=== PATIENT | female | born 1945 ===

== ENCOUNTER 2016-11-27 10:11 | Inpatient (IN) | payer MEDICARE ==
[2016-11-27 10:27] VITALS: BMI 16.6
[2016-11-27 11:13] LABS: BLOOD UREA NITROGEN 12 mg/dl (7-17); CALCIUM 9.8 mg/dL (8.4-10.2); CARBON DIOXIDE 24 mmol/L (22-30); CHLORIDE 105 mmol/L (98-107); GFR AFRICAN-AMERICAN > 60; GLUCOSE,RANDOM 84 mg/dL (65-105); POTASSIUM 4.1 MMOL/L (3.6-5.0); SODIUM 141 mmol/l (132-148)
[2016-11-27] MEDS ORDERED: Lactated Ringer's 1,000 ML IV ONE (11:15)
[2016-11-27] MEDS ORDERED: EPINEPHrine 1 mg/ml (1:1000) Inj ONE (13:32)
[2016-11-27] MEDS ORDERED: Bupivacaine 0.5% Inj(30mL) ONE (13:32)
[2016-11-27] MEDS ORDERED: Thrombin Topical 5,000 IU Spray Kit ONE (13:33)
[2016-11-27] MEDS ORDERED: Absorbable Gelatin Sponge Size 100 ONE (13:33)
[2016-11-27] MEDS ORDERED: Morphine 1 mg/ml preservative-free Inj(Duramorph) ONE (13:33)
[2016-11-27] MEDS ORDERED: Propofol 10 mg/ml Inj (20 ML) ONE (13:40)
[2016-11-27] MEDS ORDERED: Midazolam 2 MG/2 ML VIAL ONE (13:41)
[2016-11-27] MEDS ORDERED: Rocuronium 10 mg/ml (5 ml) ONE (13:41)
[2016-11-27] MEDS ORDERED: Sevoflurane - Inhalation Anesthetic Liq (250 ml) ONE (15:11)
--- NOTE | 2016-11-27 15:43 | RAD ---
PROCEDURE: CHEST RADIOGRAPH, 1 VIEW HISTORY: pre-op COMPARISON: None available. FINDINGS: LUNGS: The lungs are hyperinflated and there is peribronchial thickening with chronic changes in both lungs. PLEURA: No pneumothorax or pleural fluid seen. CARDIOVASCULAR: Normal. OSSEOUS STRUCTURES: No significant abnormalities. VISUALIZED UPPER ABDOMEN: Normal. OTHER FINDINGS: None. IMPRESSION: No active pulmonary disease. COPD.
[2016-11-27] MEDS ORDERED: Sodium Chloride 0.9% Inj (10mL) IV ONE (15:45)
[2016-11-27] MEDS ORDERED: Neostigmine Methylsulfate 3mg/3ml Syringe IV ONE (16:00)
[2016-11-27] MEDS ORDERED: Lactated Ringer's 500 ML IV ONE (16:20)
[2016-11-27] MEDS: HYDROmorphone 0.5 mg/0.5 ml ISec IVP PRN ×3 (16:45→17:00)
[2016-11-27] MEDS ORDERED: HYDROmorphone 0.5 mg/0.5 ml ISec ONE ×2 (16:47→16:53)
--- NOTE | 2016-11-27 16:53 | PCM.SURG1 ---
Surgeon's Initial Post Op Note - Surgeon's Notes Surgeon: Jhon Tirado MD Social Media Content Manager: Molly Chris PA-C Type of Anesthesia: General Endo Pre-Operative Diagnosis: Right knee severe osteoarthritis Operative Findings: see op report Post-Operative Diagnosis: same as pre-op dx Operation Performed: R TKR Specimen/Specimens Removed: Right knee bone and soft tissue Estimated Blood Loss: EBL {In ML}: 200 Date of Surgery/Procedure: 11/27/16 Time of Surgery/Procedure: 14:00
[2016-11-27] MEDS ORDERED: Labetalol 5 mg/ml Inj 20ML IVP PRN (17:01)
[2016-11-27] MEDS ORDERED: DiphenhydrAMINE 50 mg/ml Inj IVP PRN (17:01)
[2016-11-27] MEDS ORDERED: Labetalol 5 mg/ml Inj 20ML IVP STA (17:11)
[2016-11-27] MEDS ORDERED: EnalaprilAT 1.25 mg/ml Inj IVP ONE (17:56)
--- NOTE | 2016-11-27 18:52 | OP ---
PROCEDURE DATE: 11/27/2016 PROCEDURE DATE: 11/27/2016 ATTENDING SURGEON: Jhon Tirado MD [employer] ETCHER: JANIE Vang PREOPERATIVE DIAGNOSIS: Right knee osteoarthritis. POSTOPERATIVE DIAGNOSIS: Right knee osteoarthritis. PROCEDURE: Right total knee replacement. IMPLANTS SIZE: Size 2 tibial base plate, size 1 femur, 13 mm polyethylene insert, 29 mm patella. ANESTHESIA TYPE: General. ESTIMATED BLOOD LOSS: 50 mL. COMPLICATIONS: None. HISTORY: Patient with prolonged history of right knee pain progressively getting worse despite exten sive conservative management, which included activity modification, injections, anti-inflammatory mod ification and physical therapy. X-rays had revealed advanced arthritis. Patient was indicated for to luz elena knee replacement due to continued pain and limited mobility. I had a detailed discussion with the patient in the office explaining the nature of the surgery, alternatives of surgery, risks and benef its, rehabilitation protocol and surgical markings. Risks of surgery include but not limited to cont inued pain, lack of motion, infection, vascular injury, DVT/PE, nerve injury including peroneal nerve dysfunction, reflex sympathetic dystrophy, compartment syndrome, unforeseen medical and/or anesthesi a complications, limb loss, and even . The patient expressed an understanding of the risks and possible benefits of the procedure, and is also aware of the alternatives to surgery. PROCEDURE: On the day of the surgery, the patient was admitted to pre-operative holding area. A lat erality sheet was completed confirming the correct operative site. The correct surgical knee was mar ked in the holding area and informed consent was signed from the patient. Once again, I reviewed the risks and benefits of the surgery with the patient in detail. These risks include but are not limit ed to continued pain, lack of motion, infection, vascular injury, DVT/PE, nerve injury including dong eliel nerve dysfunction, reflex sympathetic dystrophy, symptomatic hardware, need for further procedur e and surgeries, instability, iatrogenic fractures, compartment syndrome, unforeseen medical and/or a nesthesia complications, limb loss, and even . The patient expressed an understanding of the ri sks and possible benefits of the procedure, also aware of the alternatives to surgery and signed the informed consent. The patient was transported to the operating room and placed in the supine position, general anesthes ia was obtained Exam Under Anesthesia: Revealed range of motion is from -3 to 120, slight varus that was . Sta ble to varus and valgus stress. A padded tourniquet was applied to patient's operative thigh and appropriate prophylactic antibiotics were given. The operative leg was draped and prepped in standard sterile manner. Timeout was compl eted, confirming patient's right knee to be the correct operative site. Using an Esmarch, the extrem ity was exsanguinated and tourniquet was inflated to 350 mmHg. The surgical incision markings were m ruthie using patella border, tibial tubercle, patella and quadriceps tendon. Using a 10 blade, a midlin e incision was made. Skin dissection was taken until the prepatellar fascia was identified and the c orners of the patellar tendon were marked for proper closure at the end of the procedure. Using a fr esh 10 blade, a medial parapatellar arthrotomy was performed. The knee was exposed in the standard m ludmila. The deep MCL was elevated for exposure, medial and lateral menisci were removed, ACL and PCL were also transected. The tibia was subluxed anteriorly. Planned tibial cut was made with power saw, using extra-medullary guide, perpendicular to mechanical axis of the tibia. After the cut was made, the alignment was also checked and was found to be appropr iate. Next, the knee was placed into 90 degrees of flexion. A drill hole was made within the femora l notch anterior to PCL insertion for placement of intramedullary femoral marce. Intramedullary femora l marce was inserted within the femoral canal and planned distal femoral cut was made. After the cut, k nee was brought into full extension. Spacer blocks were used to check the extension balancing both in full extension and 30 degrees of flexion. It was found that a 13 mm trial spacer block allowed full extension with symmetric varus and valgus balancing. Next we proceed with patella resurfacing. [place] patella width was found to 22 mm. Using the free -hand technique the arthritic patella surface was resected. Patella was sized using the guide and it was noted that 29 mm Patella dome button would be appropriate for the patient. Next the size of femoral component was determined using the posterior referencing guide. It was noted that a size 1 femur would be appropriate for this patient without causing any significant notching. A 4 x 1 cutting block was placed and flexion gap balancing was checked. The flexion gap was found to be symmetric to the extension gap. Anterior and posterior condyle, anterior and posterior chamfer cu ts were made. Next, appropriate size box cut for femoral component was prepared using the guide. The femoral trial component was impacted onto the distal femur. Appropriate size tibial trial compone nt was also placed on the cut surface of the tibia. Using the drill and punch, keel for tibial implan t was prepared. Trial tibial tray was secured onto the tibia using pins. Different size trial polyeth ylene inserts were secured on to the trial tibial tray to critically assess the following parameters: Full range of motion, extension and flexion gap balancing, mid-flexion stability, anterior and poste rior drawer, and patellar tracking. All parameter were found to be satisfactory with a 13 mm polyethy rome insert. All the trial components were removed. Implants were opened on the back table. Cement was mixed and w e proceed with cement fixation of the implants. Tibial tray, femoral component and patellar dome butt on were secured with cement. Polyethylene insert was secured onto the tibial tray using locking mecha nism. The knee was reduced and brought into full extension. Cement was allowed to harden until final component fixation. Knee was taken through the final range of motion for stability testing, and foun d to be satisfactory. A 60 mL of custom cocktail mixture was injected into posterior capsule, MCL, LCL, quadriceps tendon, and patellar tendon. Wound was copiously irrigated with sterile antibiotic solution using pulse lavag e. Arthrotomy was closed using heavy suture and wound was closed in standard manner. Patient was extu bated, transferred to stretcher and taken to the recovery room. Post-operative instructions were prov ided, physical therapy consult was requested along with DVT prophylaxis and appropriate pain medicati ons. During this procedure, I was assisted by JANIE Vang, who assisted in positioning the patient on the operating room table as well as transferring the patient from the operating room table to the recovery room stretcher. In addition, JANIE Vang, assisted me during the actual operative procedure by positioning, protecting critical neurovascular structures, exposure of the joint, and p anna positioning of the implants. The presence of JANIE Vang, as my operative investigative assistant was medically necessary to ensure the utmost safety of the patient in the pre, intra-, and post-operativ e periods. Jhon Tirado MD cc: [id number] TT: 11/27/2016 18:51:38 dn
[2016-11-27] MEDS ORDERED: ceFAZolin 1 GM in Sodium Chloride 0.9% 100 ML IVPB ONE (22:00)
[2016-11-27] MEDS: Lactated Ringer's 1,000 ML IV SCH (22:10)
[2016-11-27] MEDS: oxyCODONE 10 mg ER Tab (oxyCONTIN) PO SCH (22:12)
[2016-11-28] MEDS: Oxycodone/Acetaminophen 5/325 mg Tab PO PRN ×2 (01:21→05:14)
[2016-11-28] MEDS ORDERED: ceFAZolin 1 GM in Sodium Chloride 0.9% 100 ML IVPB ONE (06:00)
[2016-11-28] MEDS: Lactated Ringer's 1,000 ML IV SCH (06:23)
[2016-11-28 07:19] LABS: BASO % 0.3 % (0.0-2.0); EOS % 0.4 % (0.0-4.0); HEMATOCRIT 25.1 % (34.0-47.0); MEAN CELL VOLUME 91.9 fl (81.0-99.0); MEAN CORPUSCULAR HEMOGLOBIN 31.8 pg (27.0-31.0); MEAN CORPUSCULAR HGB CONC 34.5 g/dL (33.0-37.0); MEAN PLATELET VOLUME 9.2 fl (7.2-11.7); MONO # 0.5 K/uL (0.0-0.8); NEUT # 4.4 K/uL (1.8-7.0); NEUT % 73.3 % (50.0-75.0); NRBC % 0.1 % (0.0-0.0); RED CELL DISTRIBUTION WIDTH 13.5 % (11.5-14.5)
[2016-11-28 07:27] LABS: BLOOD UREA NITROGEN 10 mg/dl (7-17); CALCIUM 7.9 mg/dL (8.4-10.2); CARBON DIOXIDE 23 mmol/L (22-30); CHLORIDE 103 mmol/L (98-107); GFR AFRICAN-AMERICAN > 60; GLUCOSE,RANDOM 82 mg/dL (65-105); POTASSIUM 3.8 MMOL/L (3.6-5.0); SODIUM 135 mmol/l (132-148)
--- NOTE | 2016-11-28 08:43 | CP.PCM.PN ---
Subjective - Date & Time of Evaluation Date of Evaluation: 11/28/16 Time of Evaluation: 08:30 - Subjective Subjective: S/P RTKR POD#1 Pt seen and examined at bedside, comfortable in bed, in NAD Pt c/o ,ild right knee pain, well controlled with pain meds Pt denies any SOB, chest pain, N/V/D, numbness/tingling RLE Objective - Vital Signs/Intake and Output Vital Signs (last 24 hours): Temp Pulse Resp BP Pulse Ox 100.2 F H 85 20 153/63 H 98 11/28/16 08:06 11/28/16 08:06 11/28/16 08:06 11/28/16 08:06 11/28/16 08:06 - Medications Medications: Current Medications Acetaminophen (Tylenol 325mg Tab) 325 mg PO Q4 PRN PRN Reason: pain 1-3 Aspirin (Aspirin) 325 mg PO BID [facility] Celecoxib (Celebrex) 200 mg PO Q12 [facility] Last Admin: 11/27/16 22:00 Dose: 200 mg Docusate Sodium (Colace) 100 mg PO BID [facility] Famotidine (Pepcid) 20 mg PO BID [facility] Lactated Ringer's (Lactated Ringer's) 1,000 mls @ 75 mls/hr IV .[id number] [facility] Last Admin: 11/28/16 06:23 Dose: Not Given Ketorolac Tromethamine (Toradol) 15 mg IVP Q8@0000,0800,1600 [facility] Magnesium Hydroxide (Milk Of Magnesia) 15 ml PO DAILY [facility] Ondansetron HCl (Zofran Odt) 4 mg PO Q8H PRN PRN Reason: Nausea/Vomiting Oxycodone HCl (Oxycontin Extended Release Tab) 10 mg PO Q12 [facility] Stop: 12/14/16 21:01 Last Admin: 11/27/16 22:12 Dose: 10 mg Oxycodone/Acetaminophen (Percocet 5/325 Mg Tab) 1 tab PO Q4 PRN PRN Reason: pain 4-6 Stop: 11/30/16 17:21 Last Admin: 11/28/16 05:14 Dose: 1 tab - Labs Labs: 11/28/16 06:10 11/28/16 06:10 - Constitutional Appears: Well, No Acute Distress - Respiratory Exam Respiratory Exam: Clear to Ausculation Bilateral, NORMAL BREATHING PATTERN - Cardiovascular Exam Cardiovascular Exam: REGULAR RHYTHM, RRR - Extremities Exam Additional comments: RLE: Knee dressing C/D/I Calves soft and nontender b/l N/V intact Normal ROM at ankle No foot drop Distal pulses wnl Assessment and Plan - Assessment and Plan (Free Text) Assessment: S/P RTKR POD#1 Plan: S/P RTKR POD#1 Abx to be stopped within 24hrs post op Pain Control PT/OT- WBAT RLE CPM DVT ppx- aspirin 325mg bid Apply SCD to b/l LE Incentive Spirometer F/U labs Discussed with Dr. Tirado
--- NOTE | 2016-11-28 10:06 | RAD ---
PROCEDURE: Right knee radiograms HISTORY: post-op COMPARISON: None available. TECHNIQUE: Standard protocol for this study/examination. FINDINGS: Satisfactory postoperative status following right TKA. Components of the right knee replacement are in satisfactory position and alignment. IMPRESSION: Satisfactory postoperative status.
--- NOTE | 2016-11-28 12:00 | CP.PCM.HP ---
History of Present Illness - History of Present Illness History of Present Illness: 71yo F with PMHx OA admitted s/p right TKR. tolerated procedure well with no complication. PMHx: as above SHX: R TKR Social: denies x3 Allergies: NKDA FHx: NC d/w attending Present on Admission - Present on Admission Any Indicators Present on Admission: No Review of Systems - Review of Systems All systems: reviewed and no additional remarkable complaints except Review of Systems: right knee pain Past Patient History - Past Medical History & Family History Past Medical History?: No - Past Social History Smoking Status: Never Smoked - CARDIAC Hx Cardiac Disorders: No - PULMONARY Hx Respiratory Disorders: No - NEUROLOGICAL Hx Neurological Disorder: No - HEENT Hx HEENT Problems: No - ENDOCRINE/METABOLIC Hx Endocrine Disorders: No - HEMATOLOGICAL/ONCOLOGICAL Hx Blood Disorders: No - INTEGUMENTARY Hx Dermatological Problems: No - MUSCULOSKELETAL/RHEUMATOLOGICAL Hx Musculoskeletal Disorders: Yes Hx Osteoarthritis: Yes - GASTROINTESTINAL Hx Gastrointestinal Disorders: No - GENITOURINARY/GYNECOLOGICAL Hx Genitourinary Disorders: No - PSYCHIATRIC Hx Psychophysiologic Disorder: No - SURGICAL HISTORY Hx Surgeries: Yes Hx Section: Yes (x1) Other/Comment: back surgery - ANESTHESIA Hx Anesthesia: Yes Hx Anesthesia Reactions: Yes (vomiting) Hx Malignant Hyperthermia: No Has any member of the family had a problem w/ anesthesia?: No Meds Allergies/Adverse Reactions: Allergies Allergy/AdvReac Type Severity Reaction Status Date / Time No Known Allergies Allergy Verified 11/27/16 10:27 Physical Exam - Head Exam Head Exam: ATRAUMATIC, NORMAL INSPECTION - Eye Exam Eye Exam: Normal appearance - ENT Exam ENT Exam: Mucous Membranes Moist - Neck Exam Neck exam: Positive for: Normal Inspection - Respiratory Exam Respiratory Exam: Clear to Auscultation Bilateral - Cardiovascular Exam Cardiovascular Exam: REGULAR RHYTHM - GI/Abdominal Exam GI & Abdominal Exam: Soft - Extremities Exam Extremities exam: Negative for: pedal edema Additional comments: right knee dressing CDI - Neurological Exam Neurological exam: Alert, Oriented x3 - Skin Skin Exam: Dry, Warm Results - Vital Signs Recent Vital Signs: Last Vital Signs Temp 100.2 F H 11/28/16 08:06 Pulse 85 11/28/16 08:06 Resp 20 11/28/16 08:06 BP 153/63 H 11/28/16 08:06 Pulse Ox 98 11/28/16 08:06 - Labs Result Diagrams: 11/28/16 06:10 11/28/16 06:10 Labs: Laboratory Results - last 24 hr 11/28/16 11/28/16 06:10 06:10 WBC 6.0 RBC 2.73 L Hgb 8.7 L Hct 25.1 L MCV 91.9 MCH 31.8 H MCHC 34.5 RDW 13.5 Plt Count 128 L MPV 9.2 Neut % (Auto) 73.3 Lymph % (Auto) 17.0 L [place] % (Auto) 9.0 Eos % (Auto) 0.4 Baso % (Auto) 0.3 Neut # 4.4 Lymph # 1.0 [place] # 0.5 Eos # 0.0 Baso # 0.0 Sodium 135 Potassium 3.8 Chloride 103 Carbon Dioxide 23 Anion Gap 12 BUN 10 Creatinine 0.7 Est GFR ( Amer) > 60 Est GFR (Non-Af Amer) > 60 Random Glucose 82 Calcium 7.9 L Assessment & Plan (1) S/P TKR (total knee replacement) Status: Acute - Assessment and Plan (Free Text) Assessment: -ortho on board, appreciate input -WBAT -PT/OT -incentive spiromety -pain control Decision To Admit - Pt Status Changed To: Hospital Disposition Of: Inpatient - Admit Certification Admit to Inpatient:: After my assessment, the patient will require hospitalization for at least two midnights. This is because of the severity of symptoms shown, intensity of services needed, and/or the medical risk in this patient being treated as an outpatient. - . Bed Request Type: Med/Surg Admitting Physician: Alvarado Vernon
[2016-11-28] MEDS: oxyCODONE 10 mg ER Tab (oxyCONTIN) PO SCH ×2 (14:35→23:14)
[2016-11-28] MEDS: Magnesium Hydroxide Susp 30 ml UD PO SCH (14:46)
[2016-11-29 07:55] LABS: BASO % 0.2 % (0.0-2.0); EOS # 0.1 K/uL (0.0-0.7); EOS % 1.9 % (0.0-4.0); HEMATOCRIT 25.1 % (34.0-47.0); LYMPH # 0.8 K/uL (1.0-4.3); MEAN CELL VOLUME 92.2 fl (81.0-99.0); MEAN CORPUSCULAR HEMOGLOBIN 31.5 pg (27.0-31.0); MEAN CORPUSCULAR HGB CONC 34.1 g/dL (33.0-37.0); MEAN PLATELET VOLUME 9.7 fl (7.2-11.7); MONO # 0.6 K/uL (0.0-0.8); MONO % 9.1 % (0.0-10.0); NEUT # 5.3 K/uL (1.8-7.0); NEUT % 76.8 % (50.0-75.0); NRBC % 0.1 % (0.0-0.0); RED CELL DISTRIBUTION WIDTH 13.3 % (11.5-14.5); WHITE BLOOD COUNT 6.9 K/uL (4.8-10.8)
[2016-11-29 08:15] LABS: BLOOD UREA NITROGEN 10 mg/dl (7-17); CALCIUM 8.8 mg/dL (8.4-10.2); CARBON DIOXIDE 26 mmol/L (22-30); CHLORIDE 104 mmol/L (98-107); GFR AFRICAN-AMERICAN > 60; GLUCOSE,RANDOM 85 mg/dL (65-105); POTASSIUM 3.8 MMOL/L (3.6-5.0); SODIUM 138 mmol/l (132-148)
[2016-11-29] MEDS: Magnesium Hydroxide Susp 30 ml UD PO SCH (09:30)
[2016-11-29] MEDS: oxyCODONE 10 mg ER Tab (oxyCONTIN) PO SCH ×2 (09:43→21:44)
--- NOTE | 2016-11-29 11:49 | CP.PCM.PN ---
Subjective - Date & Time of Evaluation Date of Evaluation: 11/29/16 Time of Evaluation: 11:15 - Subjective Subjective: S/P RTKR POD#2 Pt seen and examined at bedside, with present at bedside, comfortable in bed Pt c/o mild right knee pain Pt c/o constipation, has not had BM Pt denies SOB, chest pain, N/V/D, numbness/tingling RLE Objective - Vital Signs/Intake and Output Vital Signs (last 24 hours): Temp Pulse Resp BP Pulse Ox 98.3 F 84 18 157/71 H 98 11/29/16 07:36 11/29/16 09:26 11/29/16 07:36 11/29/16 09:26 11/29/16 07:36 - Medications Medications: Current Medications Acetaminophen (Tylenol 325mg Tab) 325 mg PO Q4 PRN PRN Reason: pain 1-3 Amlodipine Besylate (Norvasc) 5 mg PO DAILY [facility] Last Admin: 11/29/16 09:26 Dose: 5 mg Aspirin (Aspirin) 325 mg PO BID [facility] Last Admin: 11/29/16 09:30 Dose: 325 mg Celecoxib (Celebrex) 200 mg PO Q12 [facility] Last Admin: 11/29/16 09:26 Dose: 200 mg Docusate Sodium (Colace) 100 mg PO BID [facility] Last Admin: 11/29/16 09:26 Dose: 100 mg Famotidine (Pepcid) 20 mg PO BID [facility] Last Admin: 11/29/16 09:27 Dose: 20 mg Ferrous Sulfate (Feosol) 325 mg PO BID [facility] Last Admin: 11/29/16 09:26 Dose: 325 mg Lactated Ringer's (Lactated Ringer's) 1,000 mls @ 75 mls/hr IV .[id number] [facility] Last Admin: 11/28/16 06:23 Dose: Not Given Ketorolac Tromethamine (Toradol) 15 mg IVP Q8@0000,0800,1600 [facility] Last Admin: 11/29/16 09:25 Dose: 15 mg Magnesium Hydroxide (Milk Of Magnesia) 15 ml PO DAILY [facility] Last Admin: 11/29/16 09:30 Dose: 15 ml Ondansetron HCl (Zofran Inj) 4 mg IVP Q6 PRN PRN Reason: Nausea/Vomiting Last Admin: 11/28/16 17:25 Dose: 4 mg Oxycodone HCl (Oxycontin Extended Release Tab) 10 mg PO Q12 [facility] Stop: 12/14/16 21:01 Last Admin: 11/29/16 09:43 Dose: 10 mg Oxycodone/Acetaminophen (Percocet 5/325 Mg Tab) 1 tab PO Q4 PRN PRN Reason: pain 4-6 Stop: 11/30/16 17:21 Last Admin: 11/28/16 05:14 Dose: 1 tab - Labs Labs: 11/29/16 06:35 11/29/16 06:35 - Constitutional Appears: Well, No Acute Distress - Respiratory Exam Respiratory Exam: Clear to Ausculation Bilateral, NORMAL BREATHING PATTERN - Cardiovascular Exam Cardiovascular Exam: REGULAR RHYTHM, RRR - Extremities Exam Additional comments: RLE: Knee dressing C/D/I Right calf tender, soft and compressible; left calf soft and nontender N/V intact distally Normal ROM at ankle No foot drop Distal pulses wnl Assessment and Plan - Assessment and Plan (Free Text) Assessment: 71 yo F s/p RTKR POD#2 Plan: S/P RTKR POD#2 Pain control DVT ppx- continue aspirin 325mg bid SCD b/l LE Incentive Spirometer Lactulose ordered prn for constipation B/L LE venous doppler ordered- r/o RLE DVT Labs reviewed, h/h stable D/C planning pending authorization and US results Discussed with Dr. Tirado
--- NOTE | 2016-11-29 14:31 | US ---
PROCEDURE: Right lower extremity venous duplex Doppler. HISTORY: R/O DVT RLE COMPARISON: None available. TECHNIQUE: Common femoral, superficial femoral, popliteal and posterior tibial veins were evaluated. Flow was assessed with color Doppler, compressibility, assessment of phasic flow and augmentation response. FINDINGS: COMMON FEMORAL VEIN: Unremarkable. SUPERFICIAL FEMORAL VEIN: Unremarkable. POPLITEAL VEIN: There is occlusive noncompressible DVT seen in the popliteal and posterior tibial veins . POSTERIOR TIBIAL VEIN: Occlusive noncompressible DVT within the popliteal and posterior tibial veins. OTHER FINDINGS: None. IMPRESSION: DVT seen within the popliteal and posterior tibial veins. Note these findings were discussed with 6 [facility] Nurse Danita at approximately 2:27 p.m. with written down and read back verification.
[2016-11-29] MEDS ORDERED: Enoxaparin 40 mg Syringe SC SCH ×2 (16:00→16:30)
--- NOTE | 2016-11-29 16:39 | CP.PCM.PN ---
Subjective - Date & Time of Evaluation Date of Evaluation: 11/29/16 Time of Evaluation: 11:00 - Subjective Subjective: Patient seen and examined at bedside. No acute events overnight. S/P Right TKR POD#2 Patient continues to have pain though controlled with pain meds. Swelling present. Wound dressing present. Has been OOB. No fever, chills, chest pain, sob. No BM yet, flatus present. Objective - Vital Signs/Intake and Output Vital Signs (last 24 hours): Temp Pulse Resp BP Pulse Ox 99.6 F 99 H 20 134/55 L 94 L 11/29/16 16:31 11/29/16 16:31 11/29/16 16:31 11/29/16 16:31 11/29/16 16:31 - Medications Medications: Current Medications Acetaminophen (Tylenol 325mg Tab) 325 mg PO Q4 PRN PRN Reason: pain 1-3 Amlodipine Besylate (Norvasc) 5 mg PO DAILY [facility] Last Admin: 11/29/16 09:26 Dose: 5 mg Celecoxib (Celebrex) 200 mg PO Q12 [facility] Last Admin: 11/29/16 09:26 Dose: 200 mg Docusate Sodium (Colace) 100 mg PO BID [facility] Last Admin: 11/29/16 09:26 Dose: 100 mg Enoxaparin Sodium (Lovenox) 40 mg SC DAILY [facility] PRN Reason: Protocol Famotidine (Pepcid) 20 mg PO BID [facility] Last Admin: 11/29/16 09:27 Dose: 20 mg Ferrous Sulfate (Feosol) 325 mg PO BID [facility] Last Admin: 11/29/16 09:26 Dose: 325 mg Lactated Ringer's (Lactated Ringer's) 1,000 mls @ 75 mls/hr IV .[id number] [facility] Last Admin: 11/28/16 06:23 Dose: Not Given Ketorolac Tromethamine (Toradol) 15 mg IVP Q8@0000,0800,1600 [facility] Last Admin: 11/29/16 09:25 Dose: 15 mg Lactulose (Enulose) 20 gm PO DAILY PRN PRN Reason: Constipation Magnesium Hydroxide (Milk Of Magnesia) 15 ml PO DAILY [facility] Last Admin: 11/29/16 09:30 Dose: 15 ml Ondansetron HCl (Zofran Inj) 4 mg IVP Q6 PRN PRN Reason: Nausea/Vomiting Last Admin: 11/28/16 17:25 Dose: 4 mg Oxycodone HCl (Oxycontin Extended Release Tab) 10 mg PO Q12 [facility] Stop: 12/14/16 21:01 Last Admin: 11/29/16 09:43 Dose: 10 mg Oxycodone/Acetaminophen (Percocet 5/325 Mg Tab) 1 tab PO Q4 PRN PRN Reason: pain 4-6 Stop: 11/30/16 17:21 Last Admin: 11/28/16 05:14 Dose: 1 tab - Labs Labs: 11/29/16 06:35 11/29/16 06:35 - Constitutional Appears: Well, Non-toxic, No Acute Distress - Head Exam Head Exam: ATRAUMATIC, NORMAL INSPECTION, NORMOCEPHALIC - Eye Exam Eye Exam: Normal appearance - Respiratory Exam Respiratory Exam: Clear to Ausculation Bilateral, NORMAL BREATHING PATTERN - Cardiovascular Exam Cardiovascular Exam: REGULAR RHYTHM, +S1, +S2. absent: Murmur - GI/Abdominal Exam GI & Abdominal Exam: Soft, Normal Bowel Sounds. absent: Tenderness - Extremities Exam Additional comments: right knee dressing CDI, swelling around knee noted Assessment and Plan (1) S/P TKR (total knee replacement) Assessment & Plan: Right - POD#2 Pain control PRN Lactulose for constipation PT/OT incentive spiromety pain control Dr. Tirado on board U/S of RLE to r/o DVT today Continue to monitor Status: Acute
[2016-11-29] MEDS: Oxycodone/Acetaminophen 5/325 mg Tab PO PRN (17:03)
[2016-11-30 06:50] LABS: HEMATOCRIT 22.6 % (34.0-47.0); MEAN CELL VOLUME 93.4 fl (81.0-99.0); MEAN CORPUSCULAR HEMOGLOBIN 31.5 pg (27.0-31.0); MEAN CORPUSCULAR HGB CONC 33.7 g/dL (33.0-37.0); RED CELL DISTRIBUTION WIDTH 13.5 % (11.5-14.5); WHITE BLOOD COUNT 5.6 K/uL (4.8-10.8)
[2016-11-30 07:29] LABS: BLOOD UREA NITROGEN 11 mg/dl (7-17); CALCIUM 8.6 mg/dL (8.4-10.2); CARBON DIOXIDE 26 mmol/L (22-30); CHLORIDE 101 mmol/L (98-107); GFR AFRICAN-AMERICAN > 60; GLUCOSE,RANDOM 103 mg/dL (65-105); POTASSIUM 4.2 MMOL/L (3.6-5.0); SODIUM 134 mmol/l (132-148)
--- NOTE | 2016-11-30 08:16 | CP.PCM.PN ---
Subjective - Date & Time of Evaluation Date of Evaluation: 11/30/16 Time of Evaluation: 07:45 - Subjective Subjective: S/P RTKR POD#3 Pt seen and examined at bedside, comfortable in bed, in NAD Pt started on lovenox 40mg SC daily for +RLE DVT Pt c/o mild right knee and thigh pain Pt denies any SOB, chest pain, N/V/D, numbness/tingling RLE, palpitations, dizziness, headache, dyspnea Pt states she had BM, +flatus Objective - Vital Signs/Intake and Output Vital Signs (last 24 hours): Temp Pulse Resp BP Pulse Ox 98.3 F 83 20 129/57 L 95 11/30/16 07:34 11/30/16 07:34 11/30/16 07:34 11/30/16 07:34 11/30/16 07:34 - Medications Medications: Current Medications Acetaminophen (Tylenol 325mg Tab) 325 mg PO Q4 PRN PRN Reason: pain 1-3 Amlodipine Besylate (Norvasc) 5 mg PO DAILY [facility] Last Admin: 11/29/16 09:26 Dose: 5 mg Celecoxib (Celebrex) 200 mg PO Q12 [facility] Last Admin: 11/29/16 21:45 Dose: 200 mg Docusate Sodium (Colace) 100 mg PO BID [facility] Last Admin: 11/29/16 16:58 Dose: 100 mg Enoxaparin Sodium (Lovenox) 40 mg SC DAILY [facility] PRN Reason: Protocol Last Admin: 11/29/16 16:58 Dose: 40 mg Famotidine (Pepcid) 20 mg PO BID [facility] Last Admin: 11/29/16 16:59 Dose: 20 mg Ferrous Sulfate (Feosol) 325 mg PO BID [facility] Last Admin: 11/29/16 16:58 Dose: 325 mg Lactated Ringer's (Lactated Ringer's) 1,000 mls @ 75 mls/hr IV .[id number] [facility] Last Admin: 11/28/16 06:23 Dose: Not Given Ketorolac Tromethamine (Toradol) 15 mg IVP Q8@0000,0800,1600 [facility] Last Admin: 11/30/16 00:20 Dose: Not Given Lactulose (Enulose) 20 gm PO DAILY PRN PRN Reason: Constipation Magnesium Hydroxide (Milk Of Magnesia) 15 ml PO DAILY [facility] Last Admin: 11/29/16 09:30 Dose: 15 ml Ondansetron HCl (Zofran Inj) 4 mg IVP Q6 PRN PRN Reason: Nausea/Vomiting Last Admin: 11/28/16 17:25 Dose: 4 mg Oxycodone HCl (Oxycontin Extended Release Tab) 10 mg PO Q12 [facility] Stop: 12/14/16 21:01 Last Admin: 11/29/16 21:44 Dose: 10 mg Oxycodone/Acetaminophen (Percocet 5/325 Mg Tab) 1 tab PO Q4 PRN PRN Reason: pain 4-6 Stop: 11/30/16 17:21 Last Admin: 11/29/16 17:03 Dose: 1 tab - Labs Labs: 11/30/16 06:10 11/30/16 06:10 - Constitutional Appears: Well, No Acute Distress - Respiratory Exam Respiratory Exam: Clear to Ausculation Bilateral, NORMAL BREATHING PATTERN - Cardiovascular Exam Cardiovascular Exam: REGULAR RHYTHM, RRR - Extremities Exam Additional comments: RLE: +swelling knee and calf Knee wound C/D/I Right calf sfot, swollen and tender mid calf Left calf soft and nontender N/V intact distally Normal ROM at ankle, no foot drop Distal pulses wnl Assessment and Plan - Assessment and Plan (Free Text) Assessment: 71 yo F s/p RTKR POD#3 Plan: S/P RTKR POD#3 Continue lovenox 40mg SC for RLE DVT Pain Control Incentive spirometer PT/OT Labs reviewed: h/h 7.6/22.6 (decreased from 8.6/25.1 on 11/29/16) Start iron 325mg PO tid Pt is currently asymptomatic, will continue to monitor Will consider blood transfusion if pt becomes symptomatic or hg<7 F/U cbc Discussed with Dr. Tirado
--- NOTE | 2016-11-30 08:52 | CP.PCM.CON ---
History of Present Illness - History of Present Illness History of Present Illness: This is a 71 yrs old female who had a long h/o severe osteoarthritis, She was admitted for a right knee replacement. She underwent the procedure without any untoward side effects. However she started to c/o [ain in the left calf yesterday abd a venous doppler showed a thrombus in the posterior tibial and popliteal veins. She was started on lovenox but the dose was for prophylaxis. Since she already has the DVT she should be on the therapeutic dose of 1mg/kg BID I learnt however that she will be going to a rehab today so i feel we can change the anticoagulant to po xarelto. She has no significant past medical problems Past Patient History - Past Medical History & Family History Past Medical History?: No - Past Social History Smoking Status: Never Smoked - CARDIAC Hx Cardiac Disorders: No - PULMONARY Hx Respiratory Disorders: No - NEUROLOGICAL Hx Neurological Disorder: No - HEENT Hx HEENT Problems: No - ENDOCRINE/METABOLIC Hx Endocrine Disorders: No - HEMATOLOGICAL/ONCOLOGICAL Hx Blood Disorders: No - INTEGUMENTARY Hx Dermatological Problems: No - MUSCULOSKELETAL/RHEUMATOLOGICAL Hx Musculoskeletal Disorders: Yes Hx Osteoarthritis: Yes - GASTROINTESTINAL Hx Gastrointestinal Disorders: No - GENITOURINARY/GYNECOLOGICAL Hx Genitourinary Disorders: No - PSYCHIATRIC Hx Psychophysiologic Disorder: No - SURGICAL HISTORY Hx Surgeries: Yes Hx Section: Yes (x1) Other/Comment: back surgery - ANESTHESIA Hx Anesthesia: Yes Hx Anesthesia Reactions: Yes (vomiting) Hx Malignant Hyperthermia: No Has any member of the family had a problem w/ anesthesia?: No Meds Home Medications: Home Medication List Medication Instructions Recorded Confirmed Type Aspirin 325 mg PO BID tab 11/29/16 Rx Celecoxib [celeBREX] 200 mg PO Q12 cap 11/29/16 Rx Docusate [Colace] 100 mg PO BID cap 11/29/16 Rx Famotidine [Pepcid] 20 mg PO BID tab 11/29/16 Rx Ferrous Sulfate [Feosol] 325 mg PO BID tab 11/29/16 Rx Lactulose [Enulose] 20 gm PO DAILY PRN 11/29/16 Rx amLODIPine [Norvasc] 5 mg PO DAILY tab 11/29/16 Rx oxyCODONE [oxyCONTIN Extended 10 mg PO Q12 11/29/16 Rx Release Tab] oxyCODONE/Acetaminophen [Percocet 1 tab PO Q4 PRN tab 11/29/16 Rx 5/325 mg Tab] Allergies/Adverse Reactions: Allergies Allergy/AdvReac Type Severity Reaction Status Date / Time No Known Allergies Allergy Verified 11/27/16 10:27 - Medications Medications: Current Medications Acetaminophen (Tylenol 325mg Tab) 325 mg PO Q4 PRN PRN Reason: pain 1-3 Amlodipine Besylate (Norvasc) 5 mg PO DAILY [facility] Last Admin: 11/29/16 09:26 Dose: 5 mg Celecoxib (Celebrex) 200 mg PO Q12 [facility] Last Admin: 11/29/16 21:45 Dose: 200 mg Docusate Sodium (Colace) 100 mg PO BID [facility] Last Admin: 11/29/16 16:58 Dose: 100 mg Famotidine (Pepcid) 20 mg PO BID [facility] Last Admin: 11/29/16 16:59 Dose: 20 mg Ferrous Sulfate (Feosol) 325 mg PO BID [facility] Last Admin: 11/29/16 16:58 Dose: 325 mg Lactated Ringer's (Lactated Ringer's) 1,000 mls @ 75 mls/hr IV .[id number] [facility] Last Admin: 11/28/16 06:23 Dose: Not Given Ketorolac Tromethamine (Toradol) 15 mg IVP Q8@0000,0800,1600 [facility] Last Admin: 11/30/16 00:20 Dose: Not Given Lactulose (Enulose) 20 gm PO DAILY PRN PRN Reason: Constipation Magnesium Hydroxide (Milk Of Magnesia) 15 ml PO DAILY [facility] Last Admin: 11/29/16 09:30 Dose: 15 ml Ondansetron HCl (Zofran Inj) 4 mg IVP Q6 PRN PRN Reason: Nausea/Vomiting Last Admin: 11/28/16 17:25 Dose: 4 mg Oxycodone HCl (Oxycontin Extended Release Tab) 10 mg PO Q12 [facility] Stop: 12/14/16 21:01 Last Admin: 11/29/16 21:44 Dose: 10 mg Oxycodone/Acetaminophen (Percocet 5/325 Mg Tab) 1 tab PO Q4 PRN PRN Reason: pain 4-6 Stop: 11/30/16 17:21 Last Admin: 11/29/16 17:03 Dose: 1 tab Rivaroxaban (Xarelto) 10 mg PO BID [facility] PRN Reason: Protocol Physical Exam - Additional Findings Additional findings: Physical exam; Alert, well oriented, in no acute distress neck; Supple, no adenopathy Chest; Clear, no rales or rhonchi Heart; RSR, no murmur Abd; Soft, no mass, no h/s megaly. EXT; she has some tenderness in hsr right calf but the left one is normal Results - Vital Signs Recent Vital Signs: Last Vital Signs Temp 98.3 F 11/30/16 07:34 Pulse 83 11/30/16 07:34 Resp 20 11/30/16 07:34 BP 129/57 L 11/30/16 07:34 Pulse Ox 95 11/30/16 07:34 - Labs Result Diagrams: 11/30/16 06:10 11/30/16 06:10 Labs: Laboratory Results - last 24 hr 11/30/16 11/30/16 06:10 06:10 WBC 5.6 RBC 2.42 L Hgb 7.6 L Hct 22.6 L MCV 93.4 MCH 31.5 H MCHC 33.7 RDW 13.5 Plt Count 112 L Sodium 134 Potassium 4.2 Chloride 101 Carbon Dioxide 26 Anion Gap 11 BUN 11 Creatinine 0.7 Est GFR ( Amer) > 60 Est GFR (Non-Af Amer) > 60 Random Glucose 103 Calcium 8.6 Assessment & Plan - Assessment and Plan (Free Text) Assessment: IMP; DVT right lower extremity, post right knee replacement Plan: Plan; will start her on xarelto 10 mg bid. Her hgb is only 7.1, will give her 2 units of packed cells if she agrees - Date & Time Date: 11/30/16 Time: 09:03
[2016-11-30] MEDS: oxyCODONE 10 mg ER Tab (oxyCONTIN) PO SCH ×2 (09:08→22:07)
[2016-11-30] MEDS: Magnesium Hydroxide Susp 30 ml UD PO SCH (11:05)
--- NOTE | 2016-11-30 14:25 | CP.PCM.PN ---
Subjective - Date & Time of Evaluation Date of Evaluation: 11/30/16 Time of Evaluation: 10:24 - Subjective Subjective: Patient seen and examined at bedside. S/P Right TKR POD#3 Patient continues to have pain though controlled with pain meds. Swelling present. Has been OOB. No fever, chills, chest pain, sob, active gross bleeding. Patient found to have a DVT of right lower extremity. Heme Onc consulted. Objective - Vital Signs/Intake and Output Vital Signs (last 24 hours): Temp Pulse Resp BP Pulse Ox 98.3 F 83 20 129/57 L 95 11/30/16 07:34 11/30/16 07:34 11/30/16 07:34 11/30/16 07:34 11/30/16 07:34 - Medications Medications: Current Medications Acetaminophen (Tylenol 325mg Tab) 325 mg PO Q4 PRN PRN Reason: pain 1-3 Amlodipine Besylate (Norvasc) 5 mg PO DAILY [facility] Last Admin: 11/30/16 09:10 Dose: 5 mg Celecoxib (Celebrex) 200 mg PO Q12 [facility] Last Admin: 11/30/16 09:10 Dose: 200 mg Docusate Sodium (Colace) 100 mg PO BID [facility] Last Admin: 11/30/16 09:09 Dose: 100 mg Famotidine (Pepcid) 20 mg PO BID [facility] Last Admin: 11/30/16 09:11 Dose: 20 mg Ferrous Sulfate (Feosol) 325 mg PO BID [facility] Last Admin: 11/30/16 09:09 Dose: 325 mg Ketorolac Tromethamine (Toradol) 15 mg IVP Q8@0000,0800,1600 [facility] Last Admin: 11/30/16 09:11 Dose: 15 mg Lactulose (Enulose) 20 gm PO DAILY PRN PRN Reason: Constipation Magnesium Hydroxide (Milk Of Magnesia) 15 ml PO DAILY [facility] Last Admin: 11/30/16 11:05 Dose: 15 ml Ondansetron HCl (Zofran Inj) 4 mg IVP Q6 PRN PRN Reason: Nausea/Vomiting Last Admin: 11/28/16 17:25 Dose: 4 mg Oxycodone HCl (Oxycontin Extended Release Tab) 10 mg PO Q12 [facility] Stop: 12/14/16 21:01 Last Admin: 11/30/16 09:08 Dose: 10 mg Oxycodone/Acetaminophen (Percocet 5/325 Mg Tab) 1 tab PO Q4 PRN PRN Reason: pain 4-6 Stop: 11/30/16 17:21 Last Admin: 11/29/16 17:03 Dose: 1 tab Rivaroxaban (Xarelto) 10 mg PO BID [facility] PRN Reason: Protocol Last Admin: 11/30/16 09:56 Dose: 10 mg - Labs Labs: 11/30/16 06:10 11/30/16 06:10 - Constitutional Appears: Well, Non-toxic, No Acute Distress - Head Exam Head Exam: ATRAUMATIC, NORMAL INSPECTION, NORMOCEPHALIC - Eye Exam Eye Exam: Normal appearance - Neck Exam Neck Exam: Normal Inspection - Respiratory Exam Respiratory Exam: Clear to Ausculation Bilateral, NORMAL BREATHING PATTERN - Cardiovascular Exam Cardiovascular Exam: REGULAR RHYTHM, +S1, +S2. absent: Murmur - GI/Abdominal Exam GI & Abdominal Exam: Soft, Normal Bowel Sounds. absent: Tenderness - Extremities Exam Extremities Exam: Calf Tenderness (mild right, none on left), Normal Inspection Additional comments: right knee dressing CDI, swelling around knee noted - Neurological Exam Neurological Exam: Alert, Awake - Psychiatric Exam Psychiatric exam: Normal Affect, Normal Mood - Skin Skin Exam: Dry, Intact, Normal Color, Warm Assessment and Plan (1) S/P TKR (total knee replacement) Assessment & Plan: Right - POD#3 Pain control PRN Lactulose for constipation PT/OT incentive spiromety pain control Dr. Tirado on board Status: Acute (2) Anemia Assessment & Plan: Acute on chronic Heme onc on board Takes ferrous sulfate at home 7.1 today, will give 2 pRBC today when stable for discharge send with ferrous sulfate Status: Acute (3) DVT (deep venous thrombosis) Assessment & Plan: Noted on right lower extremity Heme Onc on board Started Xarelto 10mg BID Status: Acute
[2016-12-01] MEDS: oxyCODONE 10 mg ER Tab (oxyCONTIN) PO SCH (08:26)
[2016-12-01 08:29] LABS: BASO % 0.4 % (0.0-2.0); EOS # 0.2 K/uL (0.0-0.7); EOS % 4.8 % (0.0-4.0); HEMATOCRIT 34.8 % (34.0-47.0); LYMPH # 0.9 K/uL (1.0-4.3); LYMPH % 18.4 % (20.0-40.0); MEAN CELL VOLUME 91.9 fl (81.0-99.0); MEAN CORPUSCULAR HEMOGLOBIN 30.7 pg (27.0-31.0); MEAN CORPUSCULAR HGB CONC 33.4 g/dL (33.0-37.0); MONO # 0.4 K/uL (0.0-0.8); MONO % 8.7 % (0.0-10.0); NEUT # 3.3 K/uL (1.8-7.0); NEUT % 67.7 % (50.0-75.0); RED CELL DISTRIBUTION WIDTH 13.9 % (11.5-14.5); WHITE BLOOD COUNT 4.9 K/uL (4.8-10.8)
[2016-12-01] MEDS: Magnesium Hydroxide Susp 30 ml UD PO SCH (08:31)
[2016-12-01 08:37] VITALS: BP 183/82; PULSE 81; RESP 20; TEMP 98.8; O2SAT 98
[2016-12-01] MEDS ORDERED: Oxycodone/Acetaminophen 5/325 mg Tab PO PRN (09:31)
[2016-12-01] MEDS ORDERED: Alum-Mag Hydrox-Simethicone Susp (30 mL) PO ONE (09:35)
--- NOTE | 2016-12-01 09:46 | CP.PCM.DIS ---
Provider - Provider Date of Admission: 11/27/16 17:31 Attending physician: Alvarado Vernon MD Primary care physician: Kevin Appiah MD Time Spent in preparation of Discharge (in minutes): 30 Hospital Course - Lab Results Lab Results: Most Recent Lab Values WBC 4.9 K/uL (4.8-10.8) 12/01/16 06:00 RBC 3.79 Mil/uL (3.80-5.20) L 12/01/16 06:00 Hgb 11.6 g/dL (12.0-16.0) L D 12/01/16 06:00 Hct 34.8 % (34.0-47.0) 12/01/16 06:00 MCV 91.9 fl (81.0-99.0) 12/01/16 06:00 MCH 30.7 pg (27.0-31.0) 12/01/16 06:00 MCHC 33.4 g/dL (33.0-37.0) 12/01/16 06:00 RDW 13.9 % (11.5-14.5) 12/01/16 06:00 Plt Count 150 K/uL (130-400) 12/01/16 06:00 MPV 9.0 fl (7.2-11.7) 12/01/16 06:00 Neut % (Auto) 67.7 % (50.0-75.0) 12/01/16 06:00 Lymph % (Auto) 18.4 % (20.0-40.0) L 12/01/16 06:00 [place] % (Auto) 8.7 % (0.0-10.0) 12/01/16 06:00 Eos % (Auto) 4.8 % (0.0-4.0) H 12/01/16 06:00 Baso % (Auto) 0.4 % (0.0-2.0) 12/01/16 06:00 Neut # 3.3 K/uL (1.8-7.0) 12/01/16 06:00 Lymph # 0.9 K/uL (1.0-4.3) L 12/01/16 06:00 [place] # 0.4 K/uL (0.0-0.8) 12/01/16 06:00 Eos # 0.2 K/uL (0.0-0.7) 12/01/16 06:00 Baso # 0.0 K/uL (0.0-0.2) 12/01/16 06:00 Sodium 134 mmol/l (132-148) 11/30/16 06:10 Potassium 4.2 MMOL/L (3.6-5.0) 11/30/16 06:10 Chloride 101 mmol/L (98-107) 11/30/16 06:10 Carbon Dioxide 26 mmol/L (22-30) 11/30/16 06:10 Anion Gap 11 (10-20) 11/30/16 06:10 BUN 11 mg/dl (7-17) 11/30/16 06:10 Creatinine 0.7 mg/dL (0.7-1.2) 11/30/16 06:10 Est GFR ( Amer) > 60 11/30/16 06:10 Est GFR (Non-Af Amer) > 60 11/30/16 06:10 Random Glucose 103 mg/dL (65-105) 11/30/16 06:10 Calcium 8.6 mg/dL (8.4-10.2) 11/30/16 06:10 Blood Type B POSITIVE 11/30/16 09:50 Blood Type Confirm B POSITIVE 11/27/16 10:45 Antibody Screen Negative 11/30/16 09:50 Crossmatch See Detail 11/30/16 09:50 BBK History Checked Patient has bt 11/30/16 09:50 - Hospital Course Hospital Course: This is a 71 y/o female who had a right TKR . Developed DVT post op. She was started on Xarelto and started Phys therapy. She has a lot of pain post op. She was sent to subacute rehab in stable condition and on pain meds. Discharge Exam - Head Exam Head Exam: ATRAUMATIC, NORMAL INSPECTION, NORMOCEPHALIC - Eye Exam Eye Exam: Normal appearance - Respiratory Exam Respiratory Exam: NORMAL BREATHING PATTERN - Cardiovascular Exam Cardiovascular Exam: REGULAR RHYTHM - GI/Abdominal Exam GI & Abdominal Exam: Normal Bowel Sounds - Extremities Exam Additional comments: swelling right leg ecchymoses right thigh - Neurological Exam Neurological exam: CN II-XII Intact, Oriented x3 - Psychiatric Exam Psychiatric exam: Normal Mood Discharge Plan - Follow Up Plan Condition: GOOD Disposition: HOME/ ROUTINE Additional Instructions: discharge to [facility] subacute rehab Referrals: Kevin Appiah MD [Primary Care Provider] -
== END 2016-12-01 12:35 | disposition home or self-care (01) | DRG 470 ==
LOC: H.OPSURG 10:11 → H.MEDSURG1 17:31
PROVIDERS: ADMIT Family Medicine; ATTEND Family Medicine
PROC: 0SRC0J9 Replacement of Right Knee Joint with Synthetic Substitute, Cemented, Open Approach (ICD-10-PCS; principal; 2016-11-27 13:00)
PROC: 30233N1 Transfusion of Nonautologous Red Blood Cells into Peripheral Vein, Percutaneous Approach (ICD-10-PCS; 2016-11-30)
DX: M17.11 Unilateral primary osteoarthritis, right knee (principal); T81.72XA Complication of vein following a procedure, not elsewhere classified, initial encounter; D62 Acute posthemorrhagic anemia; I82.431 Acute embolism and thrombosis of right popliteal vein; D63.8 Anemia in other chronic diseases classified elsewhere; I82.441 Acute embolism and thrombosis of right tibial vein; K59.00 Constipation, unspecified; Z79.82 Long term (current) use of aspirin